=== PATIENT | male | born 1980 | race Caucasian/White ===

== ENCOUNTER 2016-10-25 20:39 | Emergency (ER) | payer OTHER ==
--- NOTE | ~2016-10-25 | CR63 ---
[facility]. [facility] A Service of [facility] & [facility] RADIOLOGY TEXT RESULTS PATIENT: SILVIA MEDELLIN JR LOCATION: SED : 78 UNIT #: [id number] AGE: [address]: Nathaniel Celeste MD SEX: M ORDER DR: [id number] [place] [id number] E MR#: [id number] Acc #: [id number] NAME: SILVIA MEDELLIN : 1980 SEX: M STUDY DATE/TIME: 10/25/2016 21:05 UNIT: SED ROOM: STUDY DESCRIPTION: CR Chest 2 View Attending Physician: Nathaniel Celeste M.D. Ordering Physician: Nathaniel Celeste M.D. Primary Care Physician: Hiro Natarajan A.P.R.N. MEDICAL IMAGING REPORT This report is preliminary unless electronic signature is present. EXAM PA and lateral chest HISTORY Cough and fever for 5 days. FINDINGS 2 views of the chest demonstrate cardiac size and pulmonary vascularity are normal. No infiltrates or effusions. Mild hypertrophic changes lower thoracic spine. IMPRESSION No acute findings and no active disease. Dictated by... Irwin Domingo M.D. THIS IS AN ELECTRONICALLY VERIFIED REPORT Irwin Domingo M.D. at 10/26/2016 1:58 PM JOJO/marla TD: 10/26/2016 13:26 JOB #: [id number] MEDICAL IMAGING REPORT
[~2016-10-25 20:39] MED LIST: AMOXICILLIN875 MG PO; BACLOFEN10 MG PO; BACTROBAN15 GM TOP; CIPRO PO; DICLOFENAC; DOC-Q-LACE100 MG PO; ENDOCET 5-3251 EACH PO; FLEXERIL10 MG PO; GABAPENTIN300 MG PO; HYDROCODON-ACE1 EAC7; HYDROCODONE/APA1 T16 PO; IBUPROFEN; IBUPROFEN800 MG PO; KEFLEX; KEFLEX PO; LIPITOR PO; LIPITOR20 MG PO; LORTAB 7.5-3251 EACH PO; LORTAB 7.5-5001 TAB PO; MEDROL DOSEPAK4 MG DOB; NEURONTIN; NEXIUM PO; NEXIUM20 MG PO; NORFLEX100 M1; OMEPRAZOLE20 M2 PO; OXYCODON HCL-1 UDTA1 PO; PEPCID40 MG PO; PERCOCET; PERCOCET 7.5-31 EACH PO; PERCOCET 7.5/321 TAB PO; PHENERGAN PO; PREDNISONE; PREDNISONE PO; PRILOSEC PO; VALTREX500 MG; VOLTAREN75 MG PO
[2016-10-25 20:46] LABS: INFLUENZA A NEG (NEG); INFLUENZA B NEG (NEG)
[2016-10-25] MEDS ORDERED: ZITHROMAX1 G/PKT PO (21:43)
[2016-10-25] MEDS ORDERED: NORVASC10 MG PO (21:43)
[2016-10-25] MEDS ORDERED: ALBUTEROL17 GM INH (21:44)
[2016-10-25] MEDS ORDERED: HYDROMET SYRUP480 ML PO (21:45)
== END 2016-10-25 21:45 | disposition home or self-care (01) ==
LOC: SED 20:39
PROVIDERS: Emergency Medicine
DX: J20.9 Acute bronchitis, unspecified (principal); J01.20 Acute ethmoidal sinusitis, unspecified; J01.00 Acute maxillary sinusitis, unspecified; J44.9 Chronic obstructive pulmonary disease, unspecified; I10 Essential (primary) hypertension; F17.210 Nicotine dependence, cigarettes, uncomplicated; Z88.8 Allergy status to other drugs, medicaments and biological substances; Z79.899 Other long term (current) drug therapy
CPT/HCPCS: 71020; 87804; 94640; 99284

== ENCOUNTER → 2017-02-03 | Outpatient (CLI) | payer OTHER ==
[~2017-02-03] MED LIST changes: +ALBUTEROL17 GM INH; +HYDROMET SYRUP480 ML PO; +NORVASC10 MG PO; +VALSARTAN40 MG PO; +ZITHROMAX1 G/PKT PO
== END | disposition home or self-care (01) ==
LOC: CBAR 15:16
DX: Z01.812 Encounter for preprocedural laboratory examination (principal); E66.01 Morbid (severe) obesity due to excess calories
CPT/HCPCS: 36415; 84443; 86677; G0463

== ENCOUNTER 2017-02-24 23:43 | Emergency (ER) | payer OTHER ==
[~2017-02-24 23:43] MED LIST changes: -VALSARTAN40 MG PO
[2017-02-24] MEDS ORDERED: LIPITOR20 MG PO (23:54)
[2017-02-24] MEDS ORDERED: VALSARTAN40 MG PO (23:54)
== END 2017-02-25 00:27 | disposition home or self-care (01) ==
LOC: SED 23:43
DX: L23.9 Allergic contact dermatitis, unspecified cause (principal); I10 Essential (primary) hypertension; K21.9 Gastro-esophageal reflux disease without esophagitis; E78.5 Hyperlipidemia, unspecified; M54.9 Dorsalgia, unspecified; G89.29 Other chronic pain
CPT/HCPCS: 99282

== ENCOUNTER → 2017-03-10 | Outpatient (CLI) | payer SELFPAY ==
[~2017-03-10] MED LIST changes: +VALSARTAN40 MG PO
== END | disposition home or self-care (01) ==
LOC: CBAR 10:25
DX: Z01.818 Encounter for other preprocedural examination (principal); E66.01 Morbid (severe) obesity due to excess calories
CPT/HCPCS: G0463

== ENCOUNTER → 2017-04-06 | Outpatient (CLI) | payer SELFPAY | END | disposition home or self-care (01) | LOC: CBAR 11:18 | DX: Z01.818 Encounter for other preprocedural examination (principal); E66.01 Morbid (severe) obesity due to excess calories | CPT/HCPCS: G0463 ==

== ENCOUNTER → 2017-05-04 | Outpatient (CLI) | payer SELFPAY | END | disposition home or self-care (01) | LOC: CBAR 07:24 | DX: Z01.818 Encounter for other preprocedural examination (principal); E66.01 Morbid (severe) obesity due to excess calories | CPT/HCPCS: G0463 ==